=== PATIENT | male | born 1975 | race Caucasian/White ===

== ENCOUNTER 2018-09-11 11:11 | Emergency (ER) | payer SELFPAY ==
[2018-09-11] MEDS ORDERED: LIDOCAINE 2% INJ (20 MG/ML) 20 ML MDV INJ ONE (11:22)
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
[2018-09-11] MEDS ORDERED: CEPHALEXIN 500 MG CAPSULE PO ONE (12:25)
[2018-09-11 12:32] VITALS: BP 134/92
== END 2018-09-11 14:33 | disposition home or self-care (01) ==
LOC: ER 11:11
DX: S01.511A Laceration without foreign body of lip, initial encounter (principal); X99.1XXA Assault by knife, initial encounter; Y93.89 Activity, other specified; Y92.812 Truck as the place of occurrence of the external cause; F17.200 Nicotine dependence, unspecified, uncomplicated
CPT/HCPCS: 99282; 12015; J3490

== ENCOUNTER 2018-09-19 21:15 | Emergency (ER) | payer MEDICAID ==
--- NOTE | 2018-09-19 23:02 | ER Document Report ---
ED Medical Screen (RME) - General Chief Complaint: Suture Removal Stated Complaint: SUTURE REMOVAL Time Seen by Provider: 09/19/18 23:01 Mode of Arrival: Ambulatory Information source: Patient Notes: pt here for removal of facial sutures. no c/o I have greeted and performed a rapid initial assessment of this patient. A comprehensive ED assessment and evaluation of the patient, analysis of test results and completion of the medical decision making process will be conducted by additional ED providers. TRAVEL OUTSIDE OF THE [place] IN LAST 30 DAYS: No Past Medical History Renal/ Medical History: Denies: Hx Peritoneal Dialysis Physical Exam - Vital signs Vitals: Temp Pulse Resp BP Pulse Ox 98 F 69 18 111/54 L 95 09/19/18 21:22 09/19/18 21:22 09/19/18 21:22 09/19/18 21:22 09/19/18 21:22 Course - Vital Signs Vital signs: Temp Pulse Resp BP Pulse Ox 98 F 69 18 111/54 L 95 09/19/18 21:22 09/19/18 21:22 09/19/18 21:22 09/19/18 21:22 09/19/18 21:22
--- NOTE | 2018-09-20 00:10 | ER Document Report ---
HPI - HPI Time Seen by Provider: 09/19/18 23:01 Pain Level: Denies Notes: Patient is a 43-year-old male with no significant past medical history presents emergency department for suture removal to the right side of his face that were placed 8 days ago. Patient states that he has not had any complications from the sutures and has not noticed any separation in his wound or any discharge. He is eating and drinking without difficulty. He is urinating only. No other concerns or complaints. Denies any headache, fever, neck pain, URI, sore throat, chest pain, palpitations, syncope, cough, shortness of breath, wheeze, dyspnea, abdominal pain, nausea/vomiting/diarrhea, urinary retention, dysuria, hematuria, or rash. - ROS Systems Reviewed and Negative: Yes All other systems reviewed and negative Past Medical History - General Information source: Patient - Social History Smoking Status: Unknown if Ever Smoked Family History: None Renal/ Medical History: Denies: Hx Peritoneal Dialysis Vertical Provider Document - CONSTITUTIONAL Agree With Documented VS: Yes Notes: PHYSICAL EXAMINATION: GENERAL: Well-appearing, well-nourished and in no acute distress. LUNGS: Breath sounds clear to auscultation bilaterally and equal. No wheezes rales or rhonchi. HEART: Regular rate and rhythm without murmurs, rubs, gallops. NEUROLOGICAL: Normal speech, normal gait. PSYCH: Normal mood, normal affect. SKIN: Rt face: there are 6 simple interrupted sutures noted from the vermilion rt side to the rt lateral inferior cheek with running sutures on the most lateral side. - INFECTION CONTROL TRAVEL OUTSIDE OF THE [place] IN LAST 30 DAYS: No Course - Re-evaluation Re-evalutation: 09/20/18 00:22 Sutures removed successfully without any complications. No evidence of infection or wound dehiscence. Wound instructions reviewed. Patient to recheck with PCM in 3-5 days. Return to the ED with any other worsening/concerning symptoms. Patient is in agreement. - Vital Signs Vital signs: Temp Pulse Resp BP Pulse Ox 98 F 69 18 111/54 L 95 09/19/18 21:22 09/19/18 21:22 09/19/18 21:22 09/19/18 21:22 09/19/18 21:22 Discharge - Discharge Clinical Impression: Visit for suture removal Condition: Stable Disposition: HOME, SELF-CARE Instructions: Suture Removal Additional Instructions: Keep the skin clean Wash with soap and water Tylenol/ibuprofen if needed Monitor for any worsening symptoms Recheck with your PCM in 3-5 days Return to the ED with any worsening symptoms and/or development of fever, headache, chest pain, palpitations, syncope, shortness of breath, trouble breathing, abdominal pain, n/v/d, abscess, purulent discharge, red streaks, worsening swelling, or other worsening symptoms that are concerning to you. Referrals: [facility] [Provider Group] - Follow up as needed
[2018-09-20 01:42] VITALS: BP 121/72
== END 2018-09-20 00:27 | disposition home or self-care (01) ==
LOC: ER 21:15
DX: Z48.02 Encounter for removal of sutures (principal)